=== PATIENT | male | born 1980 | race Caucasian/White ===

== ENCOUNTER 2017-08-17 21:59 | Emergency (ER) | payer SELFPAY ==
[~2017-08-17] VITALS: Ht 188 cm; Wt 92.5 kg
[2017-08-17 22:19] VITALS: BP 144/87; PULSE 73; RESP 16; TEMP 98.3; O2SAT 98
[2017-08-17 22:27] VITALS: BP 152/86; PULSE 78; RESP 16; TEMP 98.3; O2SAT 97
--- NOTE | 2017-08-17 22:44 | PD ---
HPI Chief Complaint: Facial Pain or Swelling Time Seen by Provider: 22:31 Travel History International Travel<30 days: No Contact w/Intl Traveler<30days: No Traveled to known affect area: No History of Present Illness HPI The patient is a 37-year-old male that allegedly got elbowed in the right face playing basketball at 8:30 PM tonight.. He complains of right eye contusion and facial bruises. He says he wants something for the pain. The patient is allergic to all nonnarcotic pain medications. He does have a history of cocaine abuse. [facility] Past Medical History Diabetes: No Diminished Hearing: No Kidney Stones: Yes Immunizations Current: No Seizures: No Social History Alcohol Use: No Tobacco Use: Yes (1 ppd ) Substance Use: No Allergies-Medications (Allergen,Severity, Reaction): Coded Allergies: acetaminophen (Unverified Allergy, Severe, 05/02/17) diclofenac (Unverified Allergy, Severe, Hives, 05/02/17) etodolac (Unverified Allergy, Severe, Hives, 05/02/17) flurbiprofen (Unverified Allergy, Severe, Hives, 05/02/17) ibuprofen (Unverified Allergy, Severe, Hives, 05/02/17) indomethacin (Unverified Allergy, Severe, Hives, 05/02/17) ketoprofen (Unverified Allergy, Severe, Hives, 05/02/17) ketorolac (Unverified Allergy, Severe, Hives, 05/02/17) naproxen (Unverified Allergy, Severe, Hives, 05/02/17) oxaprozin (Unverified Allergy, Severe, Hives, 05/02/17) tramadol (Unverified Allergy, Severe, HIVES-SOB, 05/02/17) Uncoded Allergies: INCENSE (Allergy, Severe, 04/13/10) Reported Meds & Prescriptions Reported Meds & Active Scripts Active No Active Prescriptions or Reported Medications Review of Systems Except as stated in HPI: all other systems reviewed are Neg Physical Exam Narrative GENERAL: The patient is alert, oriented 3 and slight apparent distress with his facial contusion. His vital signs are normal. SKIN: Focused skin assessment warm/dry. There is a contusion around the eye but extraocular movements are normal. No obvious step deformities present on the facial area. HEAD: Neither raccoon eyes nor graham sign is present.. Normocephalic. EYES: Pupils equal and round. No scleral icterus. No injection or drainage. Extraocular movements are normal. ENT: No nasal bleeding or discharge. Mucous membranes pink and moist. There is no blood in the nose and no blood coursing down the posterior pharyngeal wall. NECK: Trachea midline. No JVD. No posterior spinous process tenderness is present. CARDIOVASCULAR: Regular rate and rhythm. No murmur appreciated. RESPIRATORY: No accessory muscle use. Clear to auscultation. Breath sounds equal bilaterally. GASTROINTESTINAL: Abdomen soft, non-tender, nondistended. Hepatic and splenic margins not palpable. MUSCULOSKELETAL: No obvious deformities. No clubbing. No cyanosis. No edema. NEUROLOGICAL: Awake and alert. No obvious cranial nerve deficits. Motor grossly within normal limits. Normal speech. PSYCHIATRIC: Appropriate mood and affect; insight and judgment normal. Data Data Last Documented VS Vital Signs Date Time Temp Pulse Resp B/P (MAP) Pulse Ox O2 Delivery O2 Flow Rate FiO2 08/17/17 22:27 98.3 78 16 152/86 (108) 97 MDM Medical Decision Making Medical Screen Exam Complete: Yes Emergency Medical Condition: Yes Medical Record Reviewed: Yes Differential Diagnosis Facial contusions, facial fracture, orbital fracture, intracranial bleed, drug seeking behavior Narrative Course The patient was told that we will have to give him something nonnarcotic for his pain. Patient objected and started cursing and left AGAINST MEDICAL ADVICE. Impression: Facial contusions, possible fracture/AMA. The patient likely also has drug-seeking behavior. Diagnosis Primary Impression: Contusion of face Additional Impression: Drug-seeking behavior Additional Instructions: The patient was told that he needs x-rays but did not want to be seen if he cannot get narcotic pain medications. Scripts No Active Prescriptions or Reported Meds Disposition: 07 AGAINST MEDICAL ADVICE Condition: Stable Luiz Hadley MD Aug 17, 2017 22:44
== END 2017-08-17 22:53 | disposition left against medical advice (07) ==
LOC: PHED 21:59
DX: S00.83XA Contusion of other part of head, initial encounter (principal); W50.0XXA Accidental hit or strike by another person, initial encounter; Y93.67 Activity, basketball; Z76.5 Malingerer [conscious simulation]
CPT/HCPCS: 99281